=== PATIENT | male | born 1970 | race Caucasian/White ===

== ENCOUNTER 2023-07-28 00:21 | Emergency (ER) | payer BC, SELFPAY ==
[2023-07-28 00:25] VITALS: RESP 20; O2SAT 99
[2023-07-28 00:26] VITALS: BP 147/88; PULSE 79; RESP 18; TEMP 36.6; O2SAT 97; BMI 34.3
--- NOTE | 2023-07-28 00:53 | ED.GENADULT ---
HPI - General Adult General Chief complaint: Unspecified Complaint, Adult Stated complaint: sciatic pain Time Seen by Provider: 07/28/23 00:25 Source: patient Mode of arrival: ambulatory Limitations: no limitations History of Present Illness HPI narrative: 52-year-old male presents the emergency department for evaluation of pain that starts in the lower back radiating down the back of the left leg, stopping at around the posterior knee area. This is been present for about 24 hours, no trauma or injury. Gradual onset. Reports that he was evaluated at [facility] less than 12 hours ago. He brings his discharge paperwork. It looks as though he was given 60 mg of prednisone and was started on a 5 day burst dose of prednisone and some Flexeril. He has not tried taking Tylenol or ibuprofen. He reports that he had a few leftover hydrocodone from an old kidney stone prescription, tried taking 1 of those more than 8 hours ago with no significant improvement in his symptoms. No fever, no recent surgery. Does have a notable prior history of cervical disc disease, reports that he had surgery on this about a year ago with no significant complications, good recovery since. As far as the lower spinal symptoms or concern, no loss of bowel or bladder control. Did try to see the chiropractor today also with no significant improvement. Adjustment was performed, did not worsen his symptoms. No rash, no itching. Difficult to move. Pain radiates down the outer hip. Worse with extension and movement. He tried taking the Flexeril at approximately 5:00 p.m. with no significant improvement in his symptoms, this was about 7 hours ago. Has not seen his primary care provider nor had a course of physical therapy for this. No prior imaging. Reports his past medical history is notable for anxiety. Home medication is sertraline 100 mg once daily. Has several old prescriptions regarding his cervical spine disease on his medication list from [place] which are inactive. Nonsmoker. No pertinent travel. ROS notable for the musculoskeletal symptoms as described above, otherwise denies any other generalized, musculoskeletal, skin, urinary or GI changes. Related Data Home Medications Medication Instructions Recorded Confirmed gabapentin .ROUTE 07/28/23 sertraline .ROUTE 07/28/23 Allergies Allergy/AdvReac Type Severity Reaction Status Date / Time No Known Drug Allergies Allergy Verified 07/28/23 00:29 PFSH PFS Social History Smoking Status: Never smoker Second hand tobacco smoke exposure: No How often do you have a drink containing alcohol: never How often do you have six or more drinks on one occasion: Never AUDIT-C Alcohol total score: 0 Non-prescribed substance use: denies use Exam Const: Vital Signs, click to edit/add: Vital Signs - 24 hr 07/28/23 00:25 07/28/23 00:26 07/28/23 00:57 Temperature 97.8 F 97.8 F Pulse Rate [Pulse Oximeter] 79 Respiratory Rate 18 Respiratory Rate [ Left Hip] 20 Blood Pressure [Ri ght Upper Arm] 147/88 H Pulse Oximetry 97 Oxygen Delivery Me thod Room Air 07/28/23 00:58 Temperature 97.8 F Pulse Rate [Pulse Oximeter] Respiratory Rate Respiratory Rate [ Left Hip] Blood Pressure [Ri ght Upper Arm] Pulse Oximetry Oxygen Delivery Me thod Documenting provider has reviewed patient's vital signs: yes Other: Mild distress due to pain, answers questions appropriately, good historian. No evasive type behaviors. HENMT: Common normals: normocephalic and head/scalp atraumatic Head and scalp: normocephalic and atraumatic Face and sinus: normal facial exam Eye: General eye: normal appearance of both eyes Chest: Common normals: inspection of chest normal Resp: Common normals: normal respiratory effort, no use of accessory muscles and clear to auscultation bilaterally Effort & inspection: able to speak in complete sentences Auscultation: clear to auscultation bilaterally Cardio: Common normals: regular rate, regular rhythm, S1 normal heart sound, S2 normal heart sound and no murmurs Rate: regular rate Rhythm: regular rhythm Heart sounds: S1 normal and S2 normal : Common normals: no CVA tenderness Bladder/kidney exam: no CVA tenderness Back & Pelvis: Common normals: no CVA tenderness and thoracic and lumbar spine normal to inspection Other: Difficult exam due to pain. No point bony tenderness over the thoracolumbar spine. There is some loss of normal lumbar lordosis. There is tenderness to palpation of the left paraspinal muscles and left SI area though not severe. Pain worsens with extension, less so with flexion. On flexion he bends more at the hip than at the spine, cannot seem to correct this when I attempt to redirect his exam. Straight leg lift exam unable to be performed as he has significant pain prior to 30?. But he has 5/5 strength in both legs, normal sensation to the touch and can ambulate without significant weakness in the legs. Extremity: Common normals: normal to inspection Other: Left hip with normal internal and external rotation. There is some tenderness over palpation of the greater trochanter and bursa area but no warmth. Neuro: Other: Antalgic gait but no obvious focal neurological deficit. Psych: Attitude: engaged Mood and affect: euthymic mood Skin: Common normals: no rashes or lesions noted General skin exam: no rashes or lesions noted Course Course ED Course: Radicular left lumbar pain with some evidence of some trochanteric bursitis as well. Patient has already been given a large dose of prednisone, less than 10 hours ago. I do not think repeating the prednisone will be useful for him. He is not adequately using basic [id number] medications to help treat his symptoms, counseled on this. Offered medication to black pickler from [facility] and take at home in order for him to be able to drive home, he declines this, citing that he would rather have adequate pain control and can have someone pick him up. Will be given 60 of IM Toradol, 25 of Vistaril, 10 of oxycodone and 1000 of Tylenol. Will then re-evaluate. Previously has prescription for Flexeril and prednisone from [facility], will anticipate continuing these. Stressed the importance of outpatient follow-up with primary care provider, he will need a long-term treatment plan. There are no red flags or signs of cauda equina syndrome, acute spinal cord impingement, and neurological emergency, etc.. He will need to max out Tylenol and ibuprofen prior to moving on to more advanced treatment options. Reevaluation(s) Time of Reevaluation #1: 01:48 Reevaluation #1: Symptoms re-evaluated about 40 minutes after medications given. Is feeling quite a bit better. Still certainly has some pain but it is not unbearable. Alarm symptoms reviewed, patient verbalizes understanding. Stressed the importance of Tylenol and ibuprofen for pain control, eligible for next dose at 7:00 a.m.. Will give 10 oxycodone tablets from [facility] for use overnight. He will take his next dose of prednisone as scheduled in the daylight hours this morning. Will call primary care provider for a follow-up appointment in about 3-10 days. Will need physical therapy referral, would likely benefit from advanced imaging if physical therapy not helpful. All questions answered. Vital Signs Vital signs: Initial Vital Signs Respiratory Rate 20 07/28/23 00:25 Vital Signs Respiratory Rate 20 07/28/23 00:25 Temperature 97.8 F 07/28/23 00:58 Pulse Rate 79 07/28/23 00:26 Respiratory Rate 18 07/28/23 00:26 Blood Pressure 147/88 H 07/28/23 00:26 Pulse Oximetry 97 07/28/23 00:26 Oxygen Delivery Method Room Air 07/28/23 00:26 Medications Administered Medications: Generic Name Dose Route Start Last Admin Trade Name Freq PRN Reason Stop Dose Admin Acetaminophen 1,000 mg 07/28/23 00:48 07/28/23 00:58 Acetaminophen 500 Mg Tablet PO 07/28/23 00:49 1,000 mg ONCE ONE Administration Hydroxyzine Pamoate 25 mg 07/28/23 00:48 07/28/23 00:57 Hydroxyzine Pamoate 25 Mg Capsule PO 07/28/23 00:49 25 mg ONCE ONE Administration Ketorolac Tromethamine 60 mg 07/28/23 00:48 07/28/23 00:57 Ketorolac 30 Mg/Ml Inj IM 07/28/23 00:49 60 mg ONCE ONE Administration Oxycodone HCl 10 mg 07/28/23 00:48 07/28/23 00:57 Oxycodone 5 Mg Tablet PO 07/28/23 00:49 10 mg ONCE ONE Administration Discharge Plan Discharge Clinical Impression: Acute left lumbar radiculopathy Patient Disposition: Home w/ Parent or Adult Condition: Improved Instructions: Lumbar Radiculopathy (ED) Additional Instructions: As we discussed, the pain in your leg is caused by inflammation of the nerve as it exits her left lower back. This is also known as sciatica, often caused by a herniated disc. This is similar to the condition that you have previously had in your neck. Unfortunately, sometimes it does present dramatically like this when the arthritis builds enough to suddenly press on the nerve. The provider from [facility] has already started you on prednisone which is an excellent medication at decreasing the inflammation on the nerve. It will take a couple of days to kick in. You will take your next dose in the daylight hours this morning. Continue taking this once daily for the 5 days that is prescribed. It will cause some increased anxiety but is very beneficial overall to treating the condition. I need you to max out your [id number] pain medications as the primary means of pain control. Proper dosing of Tylenol is 1000 mg every 6 hours, we this in with ibuprofen 600 mg every 6 hours. Your eligible for your next dose of each at 7:00 a.m.. You were given oxycodone for pain. This is stronger than the hydrocodone tablets that you have. You may take up to 2 of these every 4 hours if the pain is severe but I am hoping that you can start cutting down to just 1 tablet every 4-6 hours. It is a good idea to take a stool softener or laxative while you are on those medications to help with constipation. I have only given you a couple of days supply as the prednisone should be kicking in. Once you are out of the oxycodone, it is okay to use the few remaining hydrocodone tablets that you have if needed. We cannot give refills without an in-person visit. Long-term management of this is best served by her primary care provider. Please call 1st thing in the morning to request an appointment to discuss long-term planning and physical therapy referral. You were given a prescription for Flexeril, also known as cyclobenzaprine from [facility]. I would take this at bedtime for the next few nights. It may cause some drowsiness. It is okay to use this during the day also but tends to be more helpful at night. Heat tends to work better than ice for this condition. It is okay to continue chiropractic management. Ultimately, your likely to need an MRI or other advanced imaging. These orders need to come through your primary care provider as insurance will not cover them if ordered through the emergency department except in cases of acute trauma. Saline from work today, you may resume typical activities gradually over the weekend and should be functional by Monday. Any further disability needs to be discussed with your primary care provider. Activity Level: Activity as Tolerated Discharge Diet: Regular Prescriptions: No Action sertraline .ROUTE gabapentin .ROUTE Follow Up/Referrals: Dariana Degroot, [facility], [facility] MANAGER [Primary Care Provider] - Stand Alone Forms: MyHealth Info Instructions
[2023-07-28 00:57] VITALS: TEMP 36.6
[2023-07-28] MEDS: OXYCODONE 5 MG TABLET 10 MG PO (00:57)
[2023-07-28] MEDS: KETOROLAC 30 MG/ML inj 60 MG IM (00:57)
[2023-07-28] MEDS: hydrOXYzine pamoate 25 MG CAPSULE PO (00:57)
[2023-07-28 00:58] VITALS: TEMP 36.6
[2023-07-28] MEDS: ACETAMINOPHEN 500 MG TABLET 1000 MG PO (00:58)
[2023-07-28 01:54] VITALS: RESP 16; O2SAT 97
== END 2023-07-28 02:00 | disposition home or self-care (01) ==
PROVIDERS: Emergency Provider Family Medicine; PCP Nurse Practitioner Family
DX: M54.16 Radiculopathy, lumbar region (principal)
CPT/HCPCS: 96372; 99283; 99284; A9270; J1885